=== PATIENT | male | born 1955 | race Two or more races ===

== ENCOUNTER 2022-06-16 10:09 | Inpatient (IN) | payer BC, MEDICARE ==
[~2022-06-16] VITALS: Ht 188 cm; Wt 99.5 kg
[~2022-06-16 10:09] MED LIST: ASCO250T13 PO; CODCAP28 PO; GARL10CA2 PO; LEVO125T7 PO; MULTTAB99 PO; OMEGCAP28 PO
[2022-06-16] MEDS ORDERED: ACETAMINOPHEN 325 MG TAB PO ONE (11:15)
[2022-06-16 11:18] LABS: Alcohol, Urine < 3.0 mg/dL (0-10); Amphetamine Screen, Urine NEGATIVE (NEGATIVE); Barbiturate Scree,Urine NEGATIVE (NEGATIVE); Benzodiazephine Screen, Urine NEGATIVE (NEGATIVE); Cannabinoid Screen, Urine NEGATIVE (NEGATIVE); Cocaine Screen, Urine NEGATIVE (NEGATIVE); Opiate Scree,Urine NEGATIVE (NEGATIVE); Phencyclidine Screen, Urine NEGATIVE (NEGATIVE)
[2022-06-16 11:20] LABS: Basophils # (auto) 0 10 ^3/uL (0-0.2); Basophils % (auto) 0.6 % (0.0-2.0); Eosinophils # (auto) 0 10 ^3/uL (0-0.8); Eosinophils % (auto) 0.4 % (0.0-7.0); Hemoglobin 15.8 g/dL (13.5-17.5); Lymphocytes # (auto) 1.1 10 ^3/uL (0.4-5.4); Lymphocytes % (auto) 14.8 % (10.0-50.0); Mean Corpuscular Hemoglobin 32.4 pg (28.0-32.0); Mean Corpuscular Hgb Conc. 33.7 g/dL (32.0-36.0); Mean Corpuscular Volume 96.3 fL (80.0-100.0); Monocytes # (auto) 0.5 10 ^3/uL (0-1.3); Monocytes % (auto) 6.4 % (0.0-12.0); Neutrophils # (auto) 5.7 10 ^3/uL (1.6-8.6); Neutrophils % (auto) 77.8 % (37.0-80.0); Nucleated Red Blood Cells % 0.1 %; Red Blood Cells 4.88 10^6/uL (4.5-5.90); Red Cell Distribution Width 13.6 % (11.8-14.3); White Blood Cell 7.4 10^3/uL (4.4-10.8)
[2022-06-16 11:36] LABS: Albumin 4.2 g/dL (3.4-5.0); Anion Gap 9 (5-15); Aspartate Aminotransferase 65 U/L (15-37); BUN/Creatinine Ratio 19.6; Blood Alcohol < 3.0 mg/dL (0-5); Blood Urea Nitrogen 19 mg/dL (7-18); Calcium 8.7 mg/dL (8.5-10.1); Carbon Dioxide 25 mmol/L (21-32); Chloride 108 mmol/L (98-107); GFR African American 99 mL/min; GFR Non-African American 82 mL/min; Glucose 106 mg/dL (74-106); Magnesium 2.4 mg/dL (1.6-2.6); Potassium 4.3 mmol/L (3.5-5.1); Sodium 142 mmol/L (136-145)
[2022-06-16 11:39] LABS: Alanine Aminotransferase 54 U/L (16-61); Alkaline Phosphatase 49 U/L (45-117); Bilirubin, Total 0.8 mg/dL (0.2-1.0)
[2022-06-16] MEDS ORDERED: hydrALAZINE HCL 20 MG/ML VL IV ONE (11:45)
[2022-06-16] MEDS ORDERED: methylPREDNISolone SOD SUCC 125 MG/2 ML VL IV ONE (12:30)
[2022-06-16 12:36] LABS: Urine Bacteria NONE SEEN /hpf (None Seen); Urine Blood Negative /uL (Negative); Urine Specific Gravity 1.013 (1.001-1.035); Urine WBC 1 /hpf (0 - 3)
[2022-06-16] MEDS ORDERED: HYDROmorphone HCL 2 MG/ML VL/or syr IV PRN (14:45)
[2022-06-16] MEDS ORDERED: ONDANSETRON HCL 4 MG/2 ML VIAL IV PRN (14:45)
[2022-06-16] MEDS ORDERED: DOCUSATE SOD 100 MG CAP PO PRN (14:45)
[2022-06-16] MEDS ORDERED: ENOXAPARIN SOD 40 MG/0.4 ML SYRINGE SC ONE (15:00)
[2022-06-16] MEDS ORDERED: LABETALOL HCL 5 MG/ML 4ML SYRINGE IV PRN (15:30)
[2022-06-16 16:13] LABS: Folate (Folic Acid) 22.91 ng/mL (5.38-24)
[2022-06-16 19:00] VITALS: BP 143/86
[2022-06-16 20:00] VITALS: BP 131/84
[2022-06-16 22:16] VITALS: BP_SYST 131; BP_SYST 156; BP_DIAS 84; BP_DIAS 88
[2022-06-17 04:44] VITALS: BP 132/80
[2022-06-17 06:06] LABS: RPR Non Reactive (Non Reactive)
[2022-06-17 08:00] VITALS: BP 131/84
[2022-06-17 09:35] VITALS: BP 116/72
[2022-06-17] MEDS ORDERED: LEVOTHYROXINE SODIUM 112 MCG TAB PO ONE (12:30)
[2022-06-17] MEDS: METOPROLOL TARTRATE 25 MG TAB PO SCH ×2 (12:30→22:00)
[2022-06-17 13:22] VITALS: BP 145/75
[2022-06-17] MEDS ORDERED: THYRPOW XX (13:43)
[2022-06-17] MEDS ORDERED: METO25TA5 PO (13:47)
[2022-06-17] MEDS: THYROID 90 MG PO SCH (15:21)
[2022-06-17 16:48] VITALS: BP 137/86
[2022-06-17] MEDS: ACETAMINOPHEN 325 MG TAB PO PRN (20:26)
[2022-06-17 22:00] VITALS: BP 146/82
[2022-06-18] MEDS: ACETAMINOPHEN 325 MG TAB PO PRN ×3 (03:51→20:01)
[2022-06-18 05:00] VITALS: BP 150/88
[2022-06-18] MEDS: THYROID 90 MG PO SCH (05:22)
[2022-06-18] MEDS ORDERED: LEVOTHYROXINE SODIUM 112 MCG TAB PO SCH (07:00)
[2022-06-18 07:33] LABS: Basophils # (auto) 0 10 ^3/uL (0-0.2); Basophils % (auto) 0.5 % (0.0-2.0); Eosinophils # (auto) 0 10 ^3/uL (0-0.8); Eosinophils % (auto) 0.4 % (0.0-7.0); Hematocrit 44.1 % (41.0-53.0); Hemoglobin 14.8 g/dL (13.5-17.5); Lymphocytes # (auto) 0.8 10 ^3/uL (0.4-5.4); Lymphocytes % (auto) 11.7 % (10.0-50.0); Mean Corpuscular Hemoglobin 32.6 pg (28.0-32.0); Mean Corpuscular Hgb Conc. 33.6 g/dL (32.0-36.0); Mean Corpuscular Volume 96.8 fL (80.0-100.0); Monocytes % (auto) 15.1 % (0.0-12.0); Neutrophils # (auto) 4.6 10 ^3/uL (1.6-8.6); Neutrophils % (auto) 72.3 % (37.0-80.0); Red Blood Cells 4.55 10^6/uL (4.5-5.90); Red Cell Distribution Width 13.5 % (11.8-14.3); White Blood Cell 6.4 10^3/uL (4.4-10.8)
[2022-06-18 07:50] LABS: BUN/Creatinine Ratio 16.5; Calcium 8.1 mg/dL (8.5-10.1)
[2022-06-18 07:56] VITALS: BP 131/84
[2022-06-18 08:00] VITALS: BP 138/82
[2022-06-18] MEDS: METOPROLOL TARTRATE 25 MG TAB PO SCH ×2 (10:00→22:00)
[2022-06-18] MEDS ORDERED: PATIENTS OWN MEDICATION PO SCH (10:00)
[2022-06-18 12:00] VITALS: BP 126/70
[2022-06-18 16:00] VITALS: BP 135/79
[2022-06-18 22:00] VITALS: BP 129/80
[2022-06-19 02:21] VITALS: BP 129/80
[2022-06-19] MEDS: ACETAMINOPHEN 325 MG TAB PO PRN (04:30)
[2022-06-19 04:51] LABS: BUN/Creatinine Ratio 16.5; Potassium 4.4 mmol/L (3.5-5.1)
[2022-06-19 05:00] VITALS: BP 137/79
[2022-06-19 05:09] LABS: Hematocrit 44.7 % (41.0-53.0); Hemoglobin 15.1 g/dL (13.5-17.5); Mean Corpuscular Hemoglobin 32.7 pg (28.0-32.0); Mean Corpuscular Hgb Conc. 33.8 g/dL (32.0-36.0); Mean Corpuscular Volume 96.7 fL (80.0-100.0); Red Blood Cells 4.62 10^6/uL (4.5-5.90); Red Cell Distribution Width 13.7 % (11.8-14.3); White Blood Cell 5.2 10^3/uL (4.4-10.8)
[2022-06-19 05:17] LABS: Basophils % (manual) 0 (0.0-2.0); Blast Cells 0; Metamyelocytes % 0; Myelocytes % 0; Promyelocytes % 0; Reactive Lymphocytes 0
[2022-06-19 06:07] VITALS: BP 137/79
[2022-06-19] MEDS: THYROID 90 MG PO SCH (06:30)
[2022-06-19 11:22] LABS: Band Neutrophils % (manual) 1; Eosinophils % (manual) 2 (0-7); Lymphocytes % (manual) 27 (10.0-50.0); Monocytes % (manual) 12 (0-12)
== END 2022-06-19 08:29 | disposition home or self-care (01) | DRG 177 ==
LOC: ER 10:09 → TELE 14:47 → TELE-WESTW 18:08
PROVIDERS: ADMIT Internal Medicine; ATTEND Internal Medicine
DX: U07.1 COVID-19 (principal); J12.82 Pneumonia due to coronavirus disease 2019; I16.9 Hypertensive crisis, unspecified; E03.9 Hypothyroidism, unspecified; F17.210 Nicotine dependence, cigarettes, uncomplicated; I10 Essential (primary) hypertension; Z82.3 Family history of stroke; Z82.49 Family history of ischemic heart disease and other diseases of the circulatory system; Z83.3 Family history of diabetes mellitus; Z86.73 Personal history of transient ischemic attack (TIA), and cerebral infarction without residual deficits; Z88.1 Allergy status to other antibiotic agents; Z88.0 Allergy status to penicillin; Z28.310 Unvaccinated for COVID-19; Z86.16 Personal history of COVID-19
CPT/HCPCS: 36415; 70450; 71045; 80048; 80053; 80307; 80320; 81001; 82607; 82746; 83735; 84443; 84484; 85007; 85025; 85027; 85652; 86141; 86592; 86703; 93005; 93306; 93886; 95819; 96374; 96375; G0378; J2405; J3490